=== PATIENT | male | born 1990 | race Caucasian/White ===

== ENCOUNTER 2019-08-27 09:27 | Emergency (ER) | payer OTHER, SELFPAY ==
--- NOTE | 2019-08-27 09:47 | RAD ---
EXAM: XR Ankle Rt 3 View STANDARD PROVIDED CLINICAL HISTORY: Pain status post injury COMPARISON: None FINDINGS: Nondisplaced obliquely oriented Crowley B distal fibular fracture. No additional fracture is evident. A nkle mortise appears symmetric. Joint spaces appear preserved. IMPRESSION: Nondisplaced Crowley B distal fibular fracture.
[2019-08-27] MEDS ORDERED: Acetaminophen 500 MG TAB ONE (09:55)
== END 2019-08-27 10:30 | disposition home or self-care (01) ==
LOC: ERS 09:27
DX: S82.831A Other fracture of upper and lower end of right fibula, initial encounter for closed fracture (principal); S82.434A Nondisplaced oblique fracture of shaft of right fibula, initial encounter for closed fracture; F31.9 Bipolar disorder, unspecified; F41.9 Anxiety disorder, unspecified; F98.8 Other specified behavioral and emotional disorders with onset usually occurring in childhood and adolescence; F17.220 Nicotine dependence, chewing tobacco, uncomplicated; X50.9XXA Other and unspecified overexertion or strenuous movements or postures, initial encounter
CPT/HCPCS: 27786